=== PATIENT | male | born 1965 | race Caucasian/White ===

== ENCOUNTER 2016-06-17 19:06 | Emergency (ER) | payer OTHER ==
[~2016-06-17] VITALS: Ht 188 cm; Wt 113.0 kg
[2016-06-17 19:08] VITALS: BP 135/84; PULSE 79; RESP 14; TEMP 98.5; O2SAT 96
[2016-06-17] MEDS ORDERED: IOHEXOL 350 MG/ML 10 ML VIAL (for RAD DIAG) IV ONE (22:25)
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
[2016-06-17] MEDS ORDERED: NAPR500 PO (23:27)
[2016-06-17] MEDS ORDERED: CYCL1TAB29 PO (23:27)
[2016-06-17] MEDS ORDERED: CYCLOBENZAPRINE HCL 10 MG TAB PO ONE (23:30)
[2016-06-17] MEDS ORDERED: ACETAMINOPHEN/HYDROcodone 325 MG/5 MG TAB PO ONE (23:30)
== END 2016-06-17 23:52 | disposition home or self-care (01) ==
LOC: NEPB 19:06
DX: S09.90XA Unspecified injury of head, initial encounter (principal); S19.9XXA Unspecified injury of neck, initial encounter; Y93.9 Activity, unspecified; Y92.830 Public park as the place of occurrence of the external cause; V86.79XA Person on outside of other special all-terrain or other off-road motor vehicles injured in nontraffic accident, initial encounter
CPT/HCPCS: 70450; 70491; 99284; Q9967